=== PATIENT | female | born 1995 | race African-American/Black ===

== ENCOUNTER → 2024-11-13 18:45 | Outpatient (CLI) | payer OTHER, SELFPAY ==
--- NOTE | 2024-11-13 18:50 | DI.MRI.S_ITS ---
PROCEDURE: MR HIP RT WO CON INDICATIONS: Pain in right hip/ pain in low back TECHNIQUE: Noncontrast coronal T1 spin echo and STIR through the bony pelvis. Coronal and axial T2 fast spin echo with fat saturation, sagittal T1 spin echo, and oblique axial T2 fast spin echo with fat saturation through the hip. COMPARISON: None. FINDINGS: Image quality: Excellent. Bones and joints: Symmetric appearing linear T2 hyperintense and T1 hypointense signal is seen in bilateral femoral neck. No definite fracture or dislocation. No other area of abnormal marrow signal. No intraosseous lesions or fractures. No avascular necrosis of the femoral heads. The visualized lower lumbar spine appears normally aligned. Tendons and ligaments: Distal right gluteus medius tendinosis and low-grade partial-thickness tear is seen at its insertion on greater trochanter extending to musculotendinous junction. Distal right gluteus minimus tendon is intact. No fluid distension of the trochanteric bursa. The nearby proximal iliotibial band also appears intact. The iliopsoas tendon appears intact, without adjacent bursal fluid collections or evidence for impingement syndrome. The origin of the hamstring tendon is intact at the ischial tuberosity. Labrum and cartilage: Thinning of articulating cartilage over right femoral head is seen with T2 hyperintense signal and fraying involving superior anterior right acetabular labrum consistent with superior anterior acetabular labral tear. Soft tissues: Other visualized muscles demonstrate normal bulk and internal signal. Quadratus femoris muscle demonstrates no internal edema to suggest ischiofemoral impingement. The proximal sciatic neurovascular bundle appears normal adjacent to the hamstring tendons. No free pelvic fluid. Bladder wall thickness is normal. Genitourinary structures and bowel loops appear normal where visualized. IMPRESSION: 1. Symmetric appearing linear T2 hyperintense signal involving bilateral femoral neck area and likely represent mild stress related changes. No fracture or dislocation. No evidence of avascular necrosis of femoral head. 2. Low-grade partial-thickness tear involving distal right gluteus medius tendon extending to musculotendinous junction. No other muscle or tendon signal abnormalities. 3. Finding is consistent with superior anterior right acetabular labral tear. Dictated by: Nitesh Gallegos M.D. on 11/16/2024 at 9:57 Approved by: Nitesh Gallegos M.D. on 11/16/2024 at 10:06
--- NOTE | 2024-11-13 18:59 | DI.MRI.S_ITS ---
PROCEDURE: MR LUMBAR SPINE WO CON INDICATIONS: hip and back px TECHNIQUE: Noncontrast sagittal T1 spin echo and T2 fast echo, sagittal STIR, and T2 fast spin echo through the lumbar spine. In cases with scoliosis, additional coronal T2 fast spin echo may be performed. COMPARISON: None. FINDINGS: Image quality: Excellent. Alignment and Curvature: There is normal bony alignment. Bone Marrow: Marrow is of normal overall signal. No acute vertebral body compression fractures. Spinal Cord: Conus medullaris terminates at the L1 level. Visualized cord demonstrates normal signal and size. Paraspinous Soft Tissues: No paravertebral masses. T12-L1: No disc bulge, spinal stenosis or foraminal narrowing. L1-L2: No disc bulge, spinal stenosis or foraminal narrowing. L2-L3: No disc bulge, spinal stenosis or foraminal narrowing. L3-L4: No disc bulge, spinal stenosis or foraminal narrowing. L4-L5: No disc bulge or spinal stenosis. Trace foraminal narrowing. L5-S1: Minimal disc bulge without spinal stenosis. No foraminal narrowing. Minimal narrowing through the left subarticular recess. IMPRESSION: Minimal very early degenerative changes as above. Dictated by: Eugenia Armendariz M.D. on 11/16/2024 at 13:29 Approved by: Eugenia Armendariz M.D. on 11/16/2024 at 13:31
== END ==
LOC: MRI 18:48
DX: S76.011A Strain of muscle, fascia and tendon of right hip, initial encounter (principal); M54.50 Low back pain, unspecified; M25.551 Pain in right hip
CPT/HCPCS: 72148; 73721